=== PATIENT | male | born 1970 | race Caucasian/White ===

== ENCOUNTER 2021-08-11 01:42 | Emergency (ER) | payer OTHER, SELFPAY ==
[2021-08-11 01:43] VITALS: BP 108/75; PULSE 79; RESP 16; TEMP 36.3; O2SAT 96; BMI 27.3
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
[2021-08-11 02:49] VITALS: BP 109/72; PULSE 80; RESP 16; TEMP 36.4; O2SAT 97
== END 2021-08-11 02:50 | disposition home or self-care (01) ==
PROVIDERS: Emergency Provider Emergency Medicine
DX: H16.132 Photokeratitis, left eye (principal); W89.8XXA Exposure to other man-made visible and ultraviolet light, initial encounter; Y92.63 Factory as the place of occurrence of the external cause; Y99.0 Civilian activity done for income or pay
CPT/HCPCS: 99283

== ENCOUNTER 2023-11-24 09:21 | Outpatient (CLI) | payer BC, SELFPAY ==
[2023-11-24 18:31] LABS: Basophils % 0.3 % (0.1-2.0); Eosinophils # 0.4 K/mm3 (0.0-0.4); Eosinophils % 4.1 % (0.1-12.0); Hematocrit 45.9 % (42.0-52.0); Hemoglobin 15.3 g/dL (14.1-18.0); Lymphocytes # 1.3 K/mm3 (0.7-4.5); Lymphocytes % 14.2 % (10-50); Mean Corpuscular HGB Conc 33.4 g/dL (31.8-35.4); Mean Corpuscular Hemoglobin 33.5 pg (27.0-31.2); Mean Corpuscular Volume 100.4 fl (80-94); Mean Platelet Volume 10.3 fl (7.4-10.4); Monocytes # 0.4 K/mm3 (0.1-1.0); Monocytes % 4.5 % (1.7-9.3); Neutrophils # 7.2 K/mm3 (1.8-7.8); Platelet Count 208 K/mm3 (142-424); Red Blood Count 4.57 M/mm3 (4.60-6.20); Red Cell Distribution Width 13.6 % (11.5-17.5); White Blood Count 9.4 K/mm3 (4.8-10.8)
[2023-11-24 19:03] LABS: Alanine Aminotransferase 19 U/L (12-78); Albumin Level 4.2 g/dl (3.5-5.0); Albumin/Globulin Ratio 1.4 (1.1-1.8); Alkaline Phosphatase 85 U/L (38-126); Anion Gap 9.4 mEq/L (5-15); Aspartate Amino Transferase 33 U/L (17-59); Bilirubin,Total 0.6 mg/dl (0.2-1.3); Blood Urea Nitrogen 16 mg/dl (9-20); Calcium 9.6 mg/dl (8.4-10.2); Carbon Dioxide 25 mmol/L (22.0-30.0); Chloride 108 mmol/L (98-107); Estimated Glomerular Filt Rate 88 ml/min (>60); GFR (African American) 106 ML/MIN (>60); Glucose 100 mg/dl (74-100); Potassium 4.4 mmoL/L (3.5-5.1); Sodium 138 mmol/L (136-145); Total Protein,Serum 7.2 g/dl (6.3-8.2)
[2023-11-24 19:09] LABS: C-Reactive Protein 1.2 mg/L (0-4)
[2023-11-24 20:04] LABS: Erythrocyte Sedimentation Rate 12 mm/hr (0-20)
[2023-11-26 15:14] LABS: Lyme Ab CIA Negative (Negative)
== END 2023-11-24 23:59 | disposition home or self-care (01) ==
LOC: LAB.DROPOF 11-25 10:56
PROVIDERS: PCP Nurse Practitioner; Visit Provider Nurse Practitioner
DX: T14.8XXA Other injury of unspecified body region, initial encounter (principal); W57.XXXA Bitten or stung by nonvenomous insect and other nonvenomous arthropods, initial encounter
CPT/HCPCS: 80053; 85025; 85651; 86140; 86618

== ENCOUNTER 2024-01-25 11:12 | Outpatient (CLI) | payer BC, SELFPAY ==
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
[2024-01-25 12:14] LABS: Alanine Aminotransferase 17 U/L (12-78); Albumin/Globulin Ratio 1.3 (1.1-1.8); Alkaline Phosphatase 75 U/L (38-126); Anion Gap 9.4 mEq/L (5-15); Aspartate Amino Transferase 27 U/L (17-59); Bilirubin,Total 0.6 mg/dl (0.2-1.3); Blood Urea Nitrogen 11 mg/dl (9-20); Calcium 9.2 mg/dl (8.4-10.2); Carbon Dioxide 23 mmol/L (22.0-30.0); Chloride 110 mmol/L (98-107); Estimated Glomerular Filt Rate 118 ml/min (>60); GFR (African American) 142 ML/MIN (>60); Glucose 108 mg/dl (74-100); Potassium 4.4 mmoL/L (3.5-5.1); Sodium 138 mmol/L (136-145)
[2024-01-25 12:19] LABS: C-Reactive Protein 3.8 mg/L (0-4)
[2024-01-25 12:54] LABS: Erythrocyte Sedimentation Rate 26 mm/hr (0-20)
[2024-01-25 12:55] LABS: Basophils # 0.1 K/mm3 (0-0.2); Basophils % 0.8 % (0.1-2.0); Eosinophils # 0.1 K/mm3 (0.0-0.4); Eosinophils % 2.1 % (0.1-12.0); Hematocrit 44.3 % (42.0-52.0); Hemoglobin 14.2 g/dL (14.1-18.0); Lymphocytes # 1.3 K/mm3 (0.7-4.5); Lymphocytes % 19.4 % (10-50); Mean Corpuscular HGB Conc 32.1 g/dL (31.8-35.4); Mean Corpuscular Hemoglobin 32.5 pg (27.0-31.2); Mean Corpuscular Volume 101.4 fl (80-94); Mean Platelet Volume 8.9 fl (7.4-10.4); Monocytes # 0.3 K/mm3 (0.1-1.0); Monocytes % 4.3 % (1.7-9.3); Neutrophils # 4.8 K/mm3 (1.8-7.8); Neutrophils % 73.4 % (37.0-80.0); Platelet Count 238 K/mm3 (142-424); Red Blood Count 4.37 M/mm3 (4.60-6.20); Red Cell Distribution Width 13.7 % (11.5-17.5); White Blood Count 6.5 K/mm3 (4.8-10.8)
== END 2024-01-25 23:59 | disposition home or self-care (01) ==
LOC: RAD 11:14
PROVIDERS: PCP Family Medicine; Visit Provider Nurse Practitioner
DX: L03.115 Cellulitis of right lower limb (principal)
CPT/HCPCS: 36415; 73590; 80053; 85025; 85651; 86140

== ENCOUNTER 2024-01-28 10:53 | Outpatient (CLI) | payer BC, SELFPAY ==
--- NOTE | 2024-01-28 10:58 | US_ITS ---
FINAL REPORT CLINICAL HISTORY: RLE cellulitis and laceration FINDINGS: Limited sonographic images of the right lower extremity were obtained. There is soft tissue irregularity at the area of interest, may represent scar. There are small areas of fluid which are nonspecific. No significant fluid collection identified. IMPRESSION: Soft tissue irregularity at the area of interest may represent scar. Reviewed, Interpreted and Dictated by Darrell Cast III, MD Transcribed by Zita Vera Authenticated and [facility]
== END 2024-01-28 23:59 | disposition home or self-care (01) ==
LOC: RAD 10:54
PROVIDERS: PCP Family Medicine; Visit Provider Nurse Practitioner
DX: L03.115 Cellulitis of right lower limb (principal)
CPT/HCPCS: 76882

== ENCOUNTER 2024-02-09 17:57 | Outpatient (CLI) | payer BC, SELFPAY ==
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
--- NOTE | 2024-02-09 18:01 | XR_ITS ---
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 Exam was performed for MR screening. Views: 1 or 2 views COMPARISON: No relevant prior studies available. FINDINGS: Sinuses: Well aerated. No opacification. Bones/joints: No fracture. Soft tissues: Unremarkable. Radiopaque device or foreign body: None. No evidence of device or foreign body. No visible contraindication for MRI on this exam. IMPRESSION: No visible contraindication to MRI on this exam.
== END 2024-02-09 23:59 | disposition home or self-care (01) ==
LOC: RAD 17:57
PROVIDERS: PCP Nurse Practitioner; Visit Provider Nurse Practitioner
DX: L03.115 Cellulitis of right lower limb (principal); R93.89 Abnormal findings on diagnostic imaging of other specified body structures
CPT/HCPCS: 70200; 73718

== ENCOUNTER 2024-03-15 07:25 | Outpatient (CLI) | payer BC, SELFPAY ==
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
[2024-03-15] MEDS: IOPAMIDOL-370 (76%);100ML BOTTLE 75 ML IV (08:02)
[2024-03-15] MEDS: SODIUM CHLORIDE 0.9% 10ML SYR (RAD ONLY) 10 ML IV (08:02)
== END 2024-03-15 23:59 | disposition home or self-care (01) ==
LOC: RAD 07:25
PROVIDERS: PCP Nurse Practitioner; Visit Provider Nurse Practitioner
DX: L03.115 Cellulitis of right lower limb (principal); R93.89 Abnormal findings on diagnostic imaging of other specified body structures
CPT/HCPCS: 73702; Q9967